=== PATIENT | female | born 1970 | race Caucasian/White ===

== ENCOUNTER 2023-08-19 03:55 | Emergency (ER) | payer BC ==
[2023-08-19] MEDS ORDERED: Sodium Chloride 0.9% 10 ML Syringe FLUSH PRN (04:15)
[2023-08-19 04:30] LABS: HEMATOCRIT 53.7 % (33.0-47.0); HEMOGLOBIN 18.1 g/dL (12.0-16.0); MEAN CORPUSCULAR HEMOGLOBIN 29.6 pg (26.0-32.0); MEAN CORPUSCULAR HGB CONC 33.7 g/dL (32.0-36.0); MEAN CORPUSCULAR VOLUME 87.9 fL (78.0-93.0); PLATELET COUNT,PLT 362 x10^3/uL (130-400); RED BLOOD CELL COUNT 6.11 x10^6/uL (4.00-5.50)
[2023-08-19 04:42] LABS: WHITE BLOOD CELL COUNT,WBC 23.4 x10^3/uL (4.0-10.0)
[2023-08-19 04:46] LABS: INR 1.1 (0.9-1.1); PROTHROMBIN TIME 11.4 SEC (8.9-11.5); PTT,PARTIAL THROMBOPLSTIN TIME 24.6 SEC (21.9-33.8)
[2023-08-19 04:55] LABS: BAND PERCENT MAN 3 % (0-6); CHLORIDE,CL 102 mmol/L (98-107); LYMPHOCYTES PERCENT MAN 30 % (25-50); MONOCYTES ABSOLUTE MAN 1.4 x10^3/uL (0.0-0.8); MONOCYTES PERCENT MAN 6 % (2-11); SEG NEUTROPHILS PERCENT MAN 61 % (50-80); SODIUM,NA 140 mmol/L (136-145)
[2023-08-19 04:56] LABS: A/G RATIO 0.77; ALANINE AMINOTRANSFERASE,ALT 21 U/L (14-59); ALBUMIN 3.4 g/dL (3.4-5.0); ALKALINE PHOSPHATASE 159 U/L (46-116); ASPARTATE AMNIOTRANSFERASE,AST 19 U/L (15-37); BILIRUBIN TOTAL 0.5 mg/dL (0.2-1.0); BLOOD UREA NITROGEN,BUN 10 mg/dL (7-18); C-REACTIVE PROTEIN < 0.50 mg/dL (<=0.50); CALCIUM 9.3 mg/dL (8.5-10.1); CARBON DIOXIDE,CO2 24 mmol/L (21-32); CREATININE 1.4 mg/dL (0.55-1.02); ESTIMATED GFR 45 mL/min (>=60); ETHANOL BLOOD MEDICAL < 3 mg/dL (0-3); GLUCOSE RANDOM 234 mg/dL (70-99); MAGNESIUM 2.2 mg/dL (1.8-2.4); PROTEIN TOTAL,TP 7.8 g/dL (6.4-8.2)
[2023-08-19 04:57] LABS: LACTIC ACID 5.2 mmol/L (0.4-2.0)
[2023-08-19] MEDS: Pantoprazole 40 MG Vial IVPUSH ONE (05:02)
[2023-08-19] MEDS: Piperacillin/Tazobactam 4.5 GM in Sodium Chloride 0.9% 100 ML IV ONE (05:02)
[2023-08-19] MEDS: EPINEPHrine 1 MG/1 ML Amp IM ONE (05:03)
[2023-08-19] MEDS: Potassium Chloride Riders 20 MEQ in Premix Bag 1 BAG IV ONE (05:08)
[2023-08-19] MEDS: Lactated Ringers 1,000 ML IV ONE ×2 (05:13→06:20)
[2023-08-19 05:20] LABS: TSH ULTRASENSITIVE 68.393 uIU/mL (0.358-3.74)
[2023-08-19] MEDS: fentaNYL 50 MCG/ML SDV IVPUSH ONE (06:07)
[2023-08-19] MEDS: Iopamidol 612 MG/ML 100 ML Bottle IVPUSH ONE (06:20)
[2023-08-19 07:45] LABS: HEMATOCRIT 51.5 % (33.0-47.0); HEMOGLOBIN 16.9 g/dL (12.0-16.0); MEAN CORPUSCULAR HEMOGLOBIN 29.3 pg (26.0-32.0); MEAN CORPUSCULAR HGB CONC 32.8 g/dL (32.0-36.0); MEAN CORPUSCULAR VOLUME 89.3 fL (78.0-93.0); PLATELET COUNT,PLT 366 x10^3/uL (130-400); RED BLOOD CELL COUNT 5.77 x10^6/uL (4.00-5.50)
[2023-08-19 07:55] LABS: BAND PERCENT MAN 3 % (0-6); LYMPHOCYTES ABSOLUTE MAN 1.8 x10^3/uL (1.0-4.8); LYMPHOCYTES PERCENT MAN 6 % (25-50); MONOCYTES ABSOLUTE MAN 2.1 x10^3/uL (0.0-0.8); MONOCYTES PERCENT MAN 7 % (2-11); NEUTROPHILS ABSOLUTE MAN 26.1 x10^3/uL (1.8-7.7); PLATELET COUNT ESTIMATE ADEQUATE; SEG NEUTROPHILS PERCENT MAN 84 % (50-80)
[2023-08-19] MEDS: HYDROmorphone 0.5 MG/0.5 ML Syringe IVPUSH ONE ×2 (08:56→11:52)
[2023-08-19] MEDS: Lactated Ringers 1,000 ML IV SCH (11:17)
[2023-08-19] MEDS ORDERED: Lactated Ringers 1,000 ML IV ONE (12:19)
[2023-08-19] MEDS: Piperacillin/Tazobactam 4.5 GM in Sodium Chloride 0.9% 100 ML IV SCH (12:32)
== END 2023-08-19 15:28 | disposition short-term general hospital (02) ==
LOC: VM.ED 03:55
DX: K92.1 Melena (principal); K52.9 Noninfective gastroenteritis and colitis, unspecified; E87.20 Acidosis, unspecified
CPT/HCPCS: 36415; 74177; 80053; 80307; 83605; 83735; 84443; 84484; 85025; 85610; 85730; 86140; 87040; 96361; 96365; 96366; 96367; 96372; 96375; 96376; 99285-25; J0171; J1170; J2470; J2543; J3480; J3490; J7120; Q9967